=== PATIENT | male | born 1965 | race Hispanic/Latino ===

== ENCOUNTER 2017-06-07 16:41 | Observation (INO) | payer SELFPAY ==
[2017-06-07 18:03] LABS: #Basophils 0.1 thou/uL (0.0-0.2); #Eosinphils 0.3 thou/uL (0.0-0.7); #Lymphocytes 1.1 thou/uL (1.20-3.40); #Monocytes 0.5 thou/uL (0.11-0.59); #Neutrophils 5.5 thou/uL (1.40-6.50); %Basophils 0.8 % (0.0-1.0); %Eosinophils 4.3 % (0.0-10.0); %Lymphocytes 15.2 % (21.0-51.0); Hematocrit 44.9 % (42.0-52.0); Mean Platelet Volume 8.5 fL (7.4-10.4); Red Blood Cell (RBC) Count 5.15 mill/uL (4.70-6.10); White Blood Cell (WBC) Count 7.5 thou/uL (4.8-10.8)
[2017-06-07 18:19] LABS: Anion Gap 12 mmol/L (10-20); BUN (Urea Nitrogen) 13 mg/dL (8.4-25.7); Calc. Creatinine Clearance 0 mL/min (70-130); Calcium 9.3 mg/dL (7.8-10.44); Carbon Dioxide 24 mmol/L (22-29); Chloride 104 mmol/L (98-107); Estimated GFR-MDRD Greater than 90; Magnesium 2.1 mg/dL (1.6-2.6)
[2017-06-07 18:25] LABS: Troponin I Less than 0.010 ng/mL (< 0.028)
--- NOTE | 2017-06-07 19:24 | RAD ---
SINGLE VIEW OF THE CHEST: 06/07/17 COMPARISON: None. HISTORY: Chest pain that began this morning in the right and left lower chest. FINDINGS: Single view of the chest shows a normal sized cardiomediastinal silhouette. There is no evidence of consolidation, mass, or pleural effusion. Degenerative changes are seen in the spine. IMPRESSION: No evidence of acute cardiopulmonary disease. POS: [facility]
[2017-06-07] MEDS ORDERED: Ondansetron ODT 4 MG TAB SL PRN (21:30)
[2017-06-07] MEDS ORDERED: Ondansetron HCl/PF 4 MG/2 ML Vial IVP PRN (21:30)
[2017-06-07] MEDS ORDERED: Acetaminophen 325 MG TAB PO PRN ×2 (21:30→23:01)
[2017-06-07 21:59] VITALS: BMI 31.3
[2017-06-07 22:00] LABS: Troponin I Less than 0.010 ng/mL (< 0.028)
[2017-06-07] MEDS ORDERED: Nitroglycerin 0.4 MG TAB (25 Tab Bottle) PO PRN (23:01)
[2017-06-07] MEDS ORDERED: Sodium Chloride 0.9% 1,000 ML IV SCH (23:01)
[2017-06-08 01:03] LABS: Troponin I Less than 0.010 ng/mL (< 0.028)
[2017-06-08 04:43] LABS: #Basophils 0.1 thou/uL (0.0-0.2); #Eosinphils 0.6 thou/uL (0.0-0.7); #Lymphocytes 1.8 thou/uL (1.20-3.40); #Monocytes 0.6 thou/uL (0.11-0.59); #Neutrophils 5.1 thou/uL (1.40-6.50); %Basophils 1.2 % (0.0-1.0); %Eosinophils 7.4 % (0.0-10.0); %Lymphocytes 21.7 % (21.0-51.0); %Monocytes 7.2 % (0.0-10.0); Hematocrit 43.8 % (42.0-52.0); Mean Platelet Volume 8.8 fL (7.4-10.4); Red Blood Cell (RBC) Count 5.02 mill/uL (4.70-6.10); White Blood Cell (WBC) Count 8.1 thou/uL (4.8-10.8)
--- NOTE | 2017-06-08 04:48 | HP ---
PRIMARY CARE PHYSICIAN: Dr. Del Rosario in [place] near [place], [place]. REASON FOR ADMISSION: Chest pain. HISTORY OF PRESENT ILLNESS: The patient gives history of left-sided chest pain which started on the morning. This was lasting 30 minutes each time and it has been off and on episodes of pain. No complaints of cough or expectoration. No complaints of palpitations, PND or orthopnea. He has significant history of having had non-Q-wave IN in January of this year and has had one stent placed to RCA. The patient states he is compliant with medications. PAST MEDICAL AND SURGICAL HISTORY: History of non-Q-wave IN in January of this year with stent to RCA, hypertension, and right-sided cataract surgery. CURRENT MEDICATIONS: The patient does not remember any of his medications. All in all he says he takes 5 pills including aspirin. He goes to [facility] pharmacy in [place] and we will try to obtain the same from there in the morning. ALLERGIES: No known drug allergies. PERSONAL HISTORY: Does not abuse alcohol or drugs. No history of smoking. FAMILY HISTORY: Mother has history of hypertension. He does not know much about his father. REVIEW OF SYSTEMS: The following complete review of systems was negative, unless otherwise mentioned in the HPI or below: Constitutional: Weight loss or gain, ability to conduct usual activities. Skin: Rash, itching. Eyes: Double vision, pain. ENT/Mouth: Nose bleeding, neck stiffness, pain, tenderness. Cardiovascular: Palpitations, dyspnea on exertion, orthopnea. Respiratory: Shortness of breath, wheezing, cough, hemoptysis, fever or night sweats. Gastrointestinal: Poor appetite, abdominal pain, heartburn, nausea, vomiting, constipation, or diarrhea. Genitourinary: Urgency, frequency, dysuria, nocturia. Musculoskeletal: Pain, swelling. Neurologic/Psychiatric: Anxiety, depression. Allergy/Immunologic: Skin rash, bleeding tendency. PHYSICAL EXAMINATION: GENERAL: The patient is a 51-year-old male who is currently not in any acute distress. VITAL SIGNS: Blood pressure 120/84, pulse 84 per minute, respiratory rate is 20 per minute, temperature 98.7 degrees Fahrenheit, saturating 96% on room air. HEENT: Eyes: Extraocular muscles intact. Pupils reacting to light. Oral cavity: Mucous membranes are moist. No exudates or congestion. NECK: Supple, no elevated JVD. CARDIOVASCULAR SYSTEM: S1, S2 heard. Regular rhythm. RESPIRATORY SYSTEM: Air entry 2+ bilateral. No rales or rhonchi. ABDOMEN: Soft, bowel sounds heard. No tenderness, rigidity or guarding. EXTREMITIES: No peripheral edema or calf tenderness. VASCULAR SYSTEM: Peripheral pulses 1+ bilateral. No ischemic ulcerations or gangrene. CENTRAL NERVOUS SYSTEM: No gross focal deficits seen. The patient is alert, awake, oriented x3. PSYCHIATRIC: The patient's mood is euthymic. No hallucinations or delusions. LABORATORY DATA: H and H 14 and 44, platelet count 186, BUN 13, creatinine 0.7 , troponin x2 is negative. EKG done shows normal sinus rhythm at 69 beats per minute. There is poor R-wave progression with incomplete RBBB. Chest x-ray done shows no acute cardiopulmonary abnormalities. CLINICAL IMPRESSION AND PLAN: The patient will be under observation on telemetry for chest pain with recent history of stent placed to RCA. His two sets of troponin are negative. The patient states he is compliant with medications. Nevertheless, he cannot recall any of his medications. He knows for sure he takes aspirin along with four other pills. We will keep him n.p.o. and consult Cardiology certified low vision therapist in the morning. It is unclear if patient has in- stent stenosis with patient complaining of typical anginal pain. We will continue him on aspirin, Plavix, small dose of Lopressor for now. He will be on normal saline at 50 mL per hour. Please note I have seen and examined patient on 06/07/2017. [facility]
[2017-06-08 05:03] LABS: Anion Gap 12 mmol/L (10-20); BUN (Urea Nitrogen) 13 mg/dL (8.4-25.7); Calc. Creatinine Clearance 139 mL/min (70-130); Calcium 9.4 mg/dL (7.8-10.44); Carbon Dioxide 24 mmol/L (22-29); Chloride 107 mmol/L (98-107); Cholesterol 127 mg/dl (< 200 Desired); Estimated GFR-MDRD Greater than 90; LDL Cholesterol, Calculated 62 mg/dL
[2017-06-08] MEDS ORDERED: Famotidine 20 MG TAB PO SCH (09:00)
[2017-06-08] MEDS ORDERED: Clopidogrel Bisulfate 75 MG TAB PO SCH (09:00)
[2017-06-08] MEDS ORDERED: Metoprolol Tartrate 25 MG TAB PO SCH (09:00)
--- NOTE | 2017-06-08 10:15 | CON ---
DATE OF CONSULTATION: 06/08/2017 REASON FOR CONSULTATION: Chest pain. PRIMARY CARE PROVIDER: Dr. Celestin HISTORY OF PRESENT ILLNESS: Mr. Rankin is a 51-year-old gentleman who is visiting from [facility]. His cardiac history includes a stent placed for unstable angina 2-1/2 months ago. Currently, he has medications are unknown. He states he had recurrent chest pain lasting for several minutes. This was similar to his previous episodes, but not nearly as severe. He is currently pain free. His EKG appears to be normal with no enzyme elevation. PAST MEDICAL HISTORY: Recent non-Q MT, hypertension and cataract surgery. MEDICATIONS: Unknown. ALLERGIES: None. SOCIAL HISTORY: No current tobacco or alcohol use. FAMILY HISTORY: Negative for CAD. REVIEW OF SYSTEMS: Ten-point review of systems is reviewed and is negative. PHYSICAL EXAMINATION: VITAL SIGNS: Blood pressure 105/61, pulse 65, temperature 98.1. GENERAL: Patient is a pleasant male who is in no acute distress. The patient appears his stated age . NEUROLOGIC: The patient is alert and oriented times 3 with no focal neurologic deficits. HEENT: Sclerae without icterus. Mouth has moist mucous membranes with normal pallor. NECK: No JVD. Carotid upstroke brisk. No bruits bilaterally. LUNGS: Clear to auscultation with unlabored respirations. BACK: No scoliosis or kyphosis. CARDIAC: Regular rate and rhythm with normal S1 and S2. No S3 or S4 noted. No significant rubs, mu rmurs, thrills, or gallops noted throughout the precordium. PMI is not displaced. There is no para sternal heave. ABDOMEN: Soft, nontender, nondistended. No peritoneal signs present. No hepatosplenomegaly. No ab normal striae. EXTREMITIES: 2+ femoral and 2+ dorsalis pedis pulses. No cyanosis, clubbing, or edema. SKIN: No gross abnormalities. LABS: CK and troponin negative. Hemoglobin 13.3, creatinine 0.81. IMPRESSION: 1. Recurrent chest pain. 2. Coronary artery disease. 3. Status post stent placement. RECOMMENDATIONS: Mr. Rankin's EKG is normal. His enzymes are negative. I discussed angiography vers us stress study. I have decided to proceed with a noninvasive stress study. We will schedule a Car diolite. If there is significant ischemia present, would then proceed with angiography. I discusse d the procedure in full detail with Mr. Rankin. The risks included, but not limited to the following: , stroke, MT, need for emergency surgery, loss of limb, bleeding, and infection, as well as a reaction to the dye causing kidney failure and needing long-term dialysis. I also discussed the ri sks of PCI to include all of the above including coronary dissection and perforation in addition to acute stent thrombosis and restenosis. All questions about the procedure were answered. Given the above, the patient agreed to proceed with coronary angiography and possible PCI. All questions were answered. Given the above, the patient agreed to proceed with the above procedur e if needed. We will keep him n.p.o. after the stress study.
--- NOTE | 2017-06-08 13:37 | NM ---
CARDIAC SPECT: HISTORY: A 51-year-old male with chest pain, coronary artery disease, stent, hypertension. TECHNIQUE: A myocardial perfusion scan was performed using the single-isotope 1-day protocol with Technetium 99 m sestamibi. Nine mCi were injected intravenously for the rest exam followed by 27 mCi for the stre ss study. Exercise stress was monitored and interpreted by Dr. Gaspar. FINDINGS: Homogeneous tracer distribution is seen in the myocardial segments on stress and rest images without fixed or reversible defects. GATED SPECT LVEF: 48%. WALL MOTION EXAM: No segmental wall motion abnormalities are seen. IMPRESSION: Normal myocardial perfusion. POS: [facility]
--- NOTE | 2017-06-08 13:50 | PDOC.PN ---
- Subjective Encounter Start Date: 06/08/17 Encounter Start Time: 13:49 Subjective: feels well. no chest pain/SOB/dizziness - Objective Resuscitation Status: Resuscitation Status FULL:Full Resuscitation MAR Reviewed: Yes Vital Signs & Weight: Vital Signs (12 hours) Temp Pulse Resp BP Pulse Ox 06/08/17 08:00 98.1 F 65 14 06/08/17 07:50 98.1 F 65 14 105/61 96 06/08/17 04:20 98.8 F 72 16 107/63 94 L Weight Weight 206 lb I&O: 06/07/17 06/08/17 06/09/17 06:59 06:59 06:59 Intake Total 512 Balance 512 Result Diagrams: 06/08/17 03:59 06/08/17 03:59 Additional Labs: Laboratory Tests 06/07/17 06/07/17 06/08/17 17:44 21:25 00:22 Troponin I Less than 0.010 Less than 0.010 Less than 0.010 Triglycerides Cholesterol LDL Cholesterol, Calc HDL Cholesterol 06/08/17 03:59 Troponin I Triglycerides 198 H Cholesterol 127 LDL Cholesterol, Calc 62 HDL Cholesterol 25 Phys Exam - Physical Examination Constitutional: NAD HEENT: PERRLA, moist MMs, sclera anicteric, oral pharynx no lesions Neck: no nodes, no JVD, supple, full ROM Respiratory: no wheezing, no rales, no rhonchi, clear to auscultation bilateral Cardiovascular: RRR, no significant murmur, no rub, gallop Gastrointestinal: soft, non-tender, no distention, positive bowel sounds Musculoskeletal: no edema, pulses present Neurological: non-focal, normal sensation, moves all 4 limbs Psychiatric: normal affect, A&O x 3 Skin: no rash Dx/Plan (1) Chest pain Code(s): R07.9 - CHEST PAIN, UNSPECIFIED Status: Acute (2) CAD (coronary artery disease) Code(s): I25.10 - ATHSCL HEART DISEASE OF [place] CORONARY ARTERY W/O ANG PCTRS Status: Acute (3) HTN (hypertension) Code(s): I10 - ESSENTIAL (PRIMARY) HYPERTENSION Status: Chronic - Plan plan discussed w/ family, DVT proph w/SCDs NL NM stress test.will discuss w cardiology. -: cont ASA,plavix and BB for now * . Review of Systems - Review of Systems Constitutional: negative: Fever, Chills, Sweats, Weakness, Malaise, Other Respiratory: negative: Cough, Dry, Shortness of Breath, Hemoptysis, SOB with Excertion, Pleuritic Pain, Sputum, Wheezing Cardiovascular: negative: Chest Pain, Palpitations, Orthopnea, Paroxysmal Noc. Dyspnea, Edema, Light Headedness, Other Gastrointestinal: negative: Nausea, Vomiting, Abdominal Pain, Diarrhea, Constipation, Melena, Hematochezia, Other Genitourinary: negative: Dysuria, Frequency, Incontinence, Hematuria, Retention , Other Musculoskeletal: negative: Neck Pain, Shoulder Pain, Arm Pain, Back Pain, Hand Pain, Leg Pain, Foot Pain, Other Neurological: negative: Weakness, Numbness, Incoordination, Change in Speech, Confusion, Seizures, Other - Medications/Allergies Allergies/Adverse Reactions: Allergies Allergy/AdvReac Type Severity Reaction Status Date / Time No Known Drug Allergies Allergy Verified 06/07/17 21:55 Medications: Current Medications Acetaminophen (Tylenol) 650 mg PO Q4H PRN PRN Reason: Headache/Fever or Pain Aspirin (Aspirin Chewable) 81 mg PO DAILY [facility] Last Admin: 06/08/17 09:12 Dose: 81 mg Clopidogrel Bisulfate (Plavix) 75 mg PO QAM [facility] Last Admin: 06/08/17 09:12 Dose: 75 mg Famotidine (Pepcid) 20 mg PO BID [facility] Last Admin: 06/08/17 09:12 Dose: 20 mg Sodium Chloride (Normal Saline 0.9%) 1,000 mls @ 50 mls/hr IV .Q20H [facility] Last Admin: 06/08/17 00:58 Dose: 1,000 mls Metoprolol Tartrate (Lopressor) 12.5 mg PO BID [facility] Nitroglycerin (Nitrostat) 0.4 mg PO Q5MIN PRN PRN Reason: Chest Pain
[2017-06-08 15:35] VITALS: BP 122/79; TEMP 97.4
--- NOTE | 2017-06-08 21:33 | DIS ---
DATE OF ADMISSION: 06/07/2017 DATE OF DISCHARGE: 06/08/2017 CONDITION AT THE TIME OF DISCHARGE: Stable and improved. DISCHARGE DIAGNOSES: 1. Chest pain, likely stable angina. 2. Hypertension. 3. History of coronary artery disease. PRIMARY CARE PHYSICIAN: Out of town in [place], [place]. CONSULTATIONS: Cardiology, Dr. Gaspar. PROCEDURES DONE: Include nuclear medicine stress test, which is negative for any fixed or reversibl e defects. EF is estimated at 48%. ADMISSION HISTORY: Mr. Rankin is a very pleasant 51-year-old male with past medical history of coronary artery disease with RCA stenting 2-1/2 months ago: who presented to the emergency room w ith complaints of 2 weeks onset of left-sided chest pain. PRIMARY CARE PHYSICIAN: Dr. Del Rosario in [place], [place]. Upon presentation, he was hemodynamically stable with blood pressure 120/84 with pulse of 84. He wa s saturating 96% on room air. His EKG showed normal sinus rhythm at 69 beats per minute with poor R -wave progression and incomplete right bundle branch block. His initial cardiac enzyme was negative . He was admitted for ACS workup and Cardiology was consulted. Please see admission history and ph ysical for further details. Unfortunately, the patient was not able to provide the list of his home medication except for aspirin. He was started on aspirin as well as Plavix and beta camille by the admitting physician. HOSPITAL COURSE: The patient remained hemodynamically stable. His cardiac enzymes were trended and remained negative. He did have elevated triglycerides at 198 with normal total cholesterol 127. H is vital signs were stable as well. He was seen by Cardiology, Dr. Gaspar and underwent nuclear medicine stress test, which was normal. He was seen and examined prior to discharge. Please see hospitalist progress note for further detai ls from today's date including [id number] interaction. 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 He is instructed to resume all of his home me dication as prior. Once again, he was not able to provide the complete list, but reports compliance with his cardiac medications.
== END 2017-06-08 15:53 | disposition home or self-care (01) ==
LOC: ERS 16:41 → 2SW 21:02
PROVIDERS: ADMIT Internal Medicine; ATTEND Internal Medicine
DX: R07.89 Other chest pain (principal); I25.10 Atherosclerotic heart disease of native coronary artery without angina pectoris; I25.2 Old myocardial infarction; I10 Essential (primary) hypertension; Z79.82 Long term (current) use of aspirin; Z79.899 Other long term (current) drug therapy; Z95.5 Presence of coronary angioplasty implant and graft; Z98.41 Cataract extraction status, right eye; Z87.891 Personal history of nicotine dependence; Z82.49 Family history of ischemic heart disease and other diseases of the circulatory system
CPT/HCPCS: 36415; 36416; 71010; 78452; 80048; 80061; 82553; 83735; 84484; 85025; 93005; 93017; 96360; 96361; A9500; G0378